=== PATIENT | male | born 1955 | race Caucasian/White ===

== ENCOUNTER → 2018-05-30 16:27 | Outpatient (CLI) | payer BC ==
[~2018-05-30 16:27] MED LIST: ASPIRIN81 MG PO; AXIRON30 MG/1.5 IM; BYSTOLIC2.5 MG PO; CYMBALTA60 MG PO; FARXIGA10 MG PO; GLIMEPIRIDE4 MG PO; HCTZ25 MG PO; JANUMET XR 50-1 EAC1 PO; NORVASC10 MG PO; PLAVIX75 MG PO; SYNTHROID25 MCG PO; VASOTEC10 MG PO; VICTOZA0.6 MG/0.1 SQ; XANAX2 MG PO; ZOCOR20 MG PO
[2018-07-15 05:53] VITALS: BMI 32.6
== END | disposition home or self-care (01) ==
LOC: D.MRI 16:27
DX: M25.512 Pain in left shoulder (principal)

== ENCOUNTER → 2018-06-07 17:01 | Outpatient (CLI) | payer BC ==
[2018-06-07 18:09] LABS: CHOL - HDL RATIO 7.3 ratio (2.3-4.9); LDL-HDL RATIO 4.1 ratio (1.5-3.5)
[2018-07-15 05:53] VITALS: BMI 32.6
== END | disposition home or self-care (01) ==
LOC: D.LABREF 17:01
PROVIDERS: Internal Medicine Cardiovascular Disease
DX: E78.5 Hyperlipidemia, unspecified (principal)

== ENCOUNTER → 2018-06-13 12:46 | Outpatient (CLI) | payer BC ==
--- NOTE | ~2018-06-13 | EC ---
PATIENT:ALIX MANCILLA DATE OF SERVICE: 06/13/18 SEX: M MEDICAL RECORD: [id number] DATE OF : 59 LOCATION:[facility] AGE OF PATIENT: 62 ADMISSION DATE: 06/13/18 REFERRING PHYSICIAN: INTERPRETING PHYSICIAN: TREASURE TIMMONS MD ECHOCARDIOGRAM REPORT ECHO CHARGES 4 ECHO COMPLETE Date: 06/13 CLINICAL DIAGNOSIS: HTN ECHOCARDIOGRAPHIC MEASUREMENTS (adult normal given) AC root (d.<3.7cm) 3.4 cm LV Septum d (<1.2 cm> 1.4 cm Valve Excursion 1.2 cm LV Septum (systole) 1.4 cm Left Atria (s.<4.0cm> 3.7 cm LVPW d(<1.2cm) 0.8 cm RV (d.<2.3cm) 3.1 cm LVPW (sytole) 0.9 cm LV diastole(<5.6CM) 4.9 cm MV E-F(>70mm/sec) cm LV systole 3.9 cm LVOT Diameter 1.9 cm MV exc.(>10mm) cm Est.ejection fraction (50-75%) % DOPPLER: LVIT cm/sec A 73 cm/sec E 45 cm/sec LA cm/sec RVSP 15.6 mmHg LVOT 113 cm/sec AOP1/2T m/s Asc. Ao 135 cm/sec RVOT 87 cm/sec RA cm/sec PA 101 cm/sec AV Gradient Peak 7.3 mmHg AV Mean 4.6 mmHg AV Area 2.2 cm MV Gradient Peak 4.0 mmHg MV Mean 1.7 mmHg MV Area cm COMMENTS: President Celebrity Acquistion: Irena ZARAGOZA Fur Floor Worker: Machelle Timmons TAPE# PACS Pericardial Effusion N DATE OF SERVICE: PROCEDURE: Transthoracic echocardiogram. FINDINGS: This is a technically difficult study. It is difficult to visualize endocardial structures, but overall: 1. The left ventricle shows ejection fraction of 60%. There is evidence of left ventricular hypertrophy. Inflow characteristics consistent with diastolic dysfunction. 2. The left atrium appears to be overall normal. ECHOCARDIOGRAM REPORT [id number] ALIX MANCILLA 3. The aortic valve again appears to be overall normal. 4. The mitral valve not well visualized, but appears to have normal structure and function. 5. The tricuspid valve has trace tricuspid regurgitation. RVSP appears to be normal. 6. The right ventricle is upper limits of normal with normal function. 7. The right atrium is mildly dilated. 8. The pulmonic valve is not well visualized. The pericardium is normal. CONCLUSIONS: The patient has evidence of hypertensive heart disease, otherwise normal echocardiogram for the patient's stated age. TRANSINT:[id number] Voice Confirmation ID: [id number] DOCUMENT ID: [id number] TREASURE TIMMONS MD at 1458 CC: [id number] DICTATION DATE: 06/14/18 0844 BRICK WHEELER: 06/14/18 0908 DEP CLI 06/13/18 [id number] [place] [address]
[2018-07-15 05:53] VITALS: BMI 32.6
== END | disposition home or self-care (01) ==
LOC: D.ECHO 12:46
DX: I10 Essential (primary) hypertension (principal); R94.31 Abnormal electrocardiogram [ECG] [EKG]; E11.9 Type 2 diabetes mellitus without complications; I25.810 Atherosclerosis of coronary artery bypass graft(s) without angina pectoris

== ENCOUNTER → 2018-06-20 07:10 | Outpatient (CLI) | payer BC ==
[~2018-06-20] VITALS: Ht 182.9 cm; Wt 104.5 kg
--- NOTE | ~2018-06-20 | HEMODYNAMI ---
PATIENT:ALIX MANCILLA MEDICAL RECORD: [id number] : 59 LOCATION:[facility] ADMISSION DATE: 06/20/18 Generatedon:06/20/20189:23 Patient name: ALIX MANCILLA Patient #: [id number] SSN: : Date of study: 06/20/2018 Page: Of Hemodynamic Procedure Report Patient Data Patient Demographics Procedure consent was obtained First Name: ALIX Gender: Male Last Name: LAURENT : 1955 Patient #: [id number] Age: 62 year(s) Race: Unknown Additional ID: [id number] Contact details Address: [address] [place] [address] RO[address] State: [place] City: [place] Zip code: [address] Past Medical History Allergies: No known allergies Admission Admission Data Admission Date: 06/20/2018 Admission Time: 7:10 Lab Results Lab Result Date: 06/20/2018 Lab Result Time: 8:05 Biochemistry Name Units Result Min Max BUN mg/dl 45 --(----)-* 7 18 Creatinine mg/dl 1.8 --(----)-* 0.6 1.3 CBC Name Units Result Min Max Hematocrit % 44.5 --(*---)-- 42 54 Hemoglobin g/dl 15.3 --(-*--)-- 13.5 17.5 Procedure Procedure Types Cath Procedure Diagnostic Procedure LHC LHC w/Coronaries w/Grafts Sedation Charges Moderate Sedation up to 15 minutes Procedure Description Procedure Date Procedure Date: 06/20/2018 Procedure Start Time: 9:02 Procedure End Time: 9:23 Procedure Staff Name Function Hany Jade MD Performing Physician Emmy Blum RT Monitor Cy Moncada RN Nurse Fatoumata oCe RT Scrub Tristin Waddell RN Director Of Regional Sales Procedure Data Cath Procedure Fluoroscopy Diagnostic fluoroscopy Total fluoroscopy Time: 4.1 time: 4.1 min min Diagnostic fluoroscopy Total fluoroscopy dose: 978 dose: 978 mGy mGy Contrast Material Contrast Material Type Amount (ml) Isovue 300 83 Entry Location Entry Primary Successful Side Size Upsize Upsize Entry Closure Succes sful Closure Location (Fr) 1 (Fr) 2 (Fr) Remarks Device Remarks Femoral Right 5 Fr Exoseal artery Estimated blood loss: 5 ml Diagnostic catheters Device Type Used For End Catheter Placement MULTIPACK 3DRC 5Fr Internal mammary catheter arteriography MULTIPACK 3DRC 5Fr SVG Angiography catheter MULTIPACK 3DRC 5Fr Right Coronary catheter Angiography MULTIPACK JL 4.0 5Fr Left Coronary catheter Angiography MULTIPACK Pigtail 5 Fr LV Angiography catheter MULTIPACK Pigtail 5 Fr Aortic Root catheter Angiography Procedure Complications No complications Procedure Medications Medication Administration Route Dosage 0.9% NaCl I.V. 100 ml/hr Oxygen etCO2 Nasal cannula 2 l/min Heparin Flush Bag added to field 2 bags (1000units/500ml NS) Lidocaine 2% added to field 20 Versed I.V. 2 mg Fentanyl I.V. 50 mcg Versed I.V. 1 mg Fentanyl I.V. 50 mcg Hemodynamics Rest HGB: 15.3 (g/dl) Heart Rate: 73 (bpm) Pressure Samples Time Site Value (mmHg) Purpose Heart Use Rate(bpm) 9:17 LV 132/-7,13 EDP 77 9:18 AO 126/70(94) Pullback 74 9:18 LV 126/10,12 Pullback 74 Gradients Valve Time Site 1 Site 2 Mean SEP/DFP Peak To Heart Use (mmHg) (sec/min) Peak Rate (mmHg) (bpm) Aortic 9:18 LV AO 1 9 0 74 126/10,12 126/70(94) Calculations Valve P-P Mean Valve Index Valve Source Name Gradient Area Flow (cm2) Aortic 0 1 0 1 Snapshots Pre Cath Intra NCS Post Cath Vital Signs Time Heart Resp SPO2 etCO2 NIBP (mmHg) Rhythm Pain Sedation Rate (ipm) (%) (mmHg) Status Level (bpm) 8:49:54 72 19 100 36 141/77(116) NSR 0 (11) 10(A) , No pain 8:54:36 69 16 97 37.6 130/75(105) NSR 0 (11) 10(A) , No pain 8:59:15 77 14 99 23.3 128/81(96) NSR 0 (11) 10(A) , No pain 9:03:57 73 10 100 18.8 137/80(105) NSR 0 (11) 10(A) , No pain 9:08:38 72 15 99 36 123/73(96) NSR 0 (11) 10(A) , No pain 9:13:21 70 18 99 41.3 122/75(98) NSR 0 (11) 10(A) , No pain 9:18:01 73 13 100 31.5 129/79(106) NSR 0 (11) 10(A) , No pain 9:22:46 70 7 98 33.8 133/71(109) NSR 0 (11) 10(A) , No pain Medications Time Medication Route Dose Verified Delivered Reason Notes Effe ctiveness by by 8:49:57 0.9% NaCl I.V. 100 Cy Cy Per ml/hr Lorigan Lorigan physician RN RN 8:50:10 Oxygen etCO2 2 Cy Cy Per Nasal l/min Lorgaro Kooigan physician cannula RN RN 8:50:22 Heparin Flush added 2 Cy Cy used for Bag to bags Lorigan Lorigan procedure (1000units/500ml field RN RN NS) 8:50:32 Lidocaine 2% added 20ml Cy Cy for local to vial Lorigan Lorigan anesthetic field RN RN 8:50:46 Versed I.V. 2 mg Cy Cy for Lorigan Lorigan sedation RN RN 8:50:55 Fentanyl I.V. 50 Cy Cy for mcg Lorigan Lorigan sedation RN RN 9:03:16 Versed I.V. 1 mg Cy Cy for Lorigan Lorigan sedation RN RN 9:03:28 Fentanyl I.V. 50 Cy Cy for mcg Lorigan Lorigan sedation RN mattress filling machine tender Log Time Note 8:31:58 Time tracking: Regular hours (M-F 7:00 - 5:00) 8:32:02 Plan of Care:Hemodynamics will remain stable., Cardiac rhythm will remain stable., Comfort level will be maintained., Respiratory function will remain adequate., Patient/ family verbilizes understanding of procedure., Procedure tolerated without complication., Recovers from procedure without complications.. 8:35:51 Tristin Waddell RN sent for patient. Start room use. 8:40:37 Patient received from Pre/Post Procedure Room to CCL 1 Alert and oriented. Tansferred to table in Supine position. 8:40:38 Warm blankets applied, and eliot hugger turned on for patient comfort. 8:40:39 Correct patient and procedure confirmed by team. 8:40:40 Signed procedure consent form obtained from patient. 8:40:41 ECG and BP/O2 sat monitors applied to patient. 8:40:42 Full Disclosure recording started 8:44:38 H&P Date Dictated: 06/16/2018 Within 30 days and on chart., H&P Addendum completed by physician on day of procedure. (MUST COMPLETE FOR ALL OUTPATIENTS). 8:44:39 Pre-procedure instructions explained to patient. 8:44:40 Pre-op teaching completed and patient verbalized understanding. 8:44:41 Family in waiting room. 8:44:42 Patient NPO since Midnight. 8:44:49 Patient allergic to No known allergies 8:44:51 Is the patient allergic to Iodine/contrast media? No. 8:44:52 Is patient on blood thinner?Yes 8:44:54 ACC The patient was administered the following blood thiners within the last 24 hours: ACCPlavix 8:44:58 Patient diabetic? Yes. 8:44:59 If diabetic: On Metformin? No 8:45:01 Previous problem with sedation/anesthesia? No ? 8:45:03 Snore? Yes 8:45:04 Sleep apnea? Yes 8:45:05 Deviated septum? No 8:45:05 Opens mouth fully? Yes 8:45:06 Sticks out tongue? Yes 8:45:08 Airway obstruction? No ? 8:45:09 Dentures? No ? 8:45:15 Pre procedure: right dorsailis pedis pulse 2+ Normal; easily identifiable; not easily obliterated 8:45:16 Patient pain scale 0/10 ?. 8:45:34 IV patent on arrival in right antecubital with 0.9% NaCl at O. 8:47:07 Lab results completed and on chart. 8:48:32 Lab Result : BUN 45 mg/dl 8:48:32 Lab Result : Creatinine 1.8 mg/dl 8:48:32 Lab Result : Hemoglobin 15.3 g/dl 8:48:32 Lab Result : Hematocrit 44.5 % 8:48:35 Right groin area was prepped with chlora-prep and draped in sterile fashion 8:48:36 Alarms reviewed by R. N. 8:48:36 Sharps counted by scrub and verified by R.N. 8:48:42 Use device set Femoral Dx 8:48:43 ACIST Syringe (72059) opened to sterile field. 8:48:43 Bag Decanter (2002S) opened to sterile field. 8:48:43 Medline Cath Pack ([id number]) opened to sterile field. 8:48:45 ACIST Hand Control (81538) opened to sterile field. 8:48:45 ACIST Manifold (22786) opened to sterile field. 8:48:46 Tegaderm 4 x 4 (1626W) opened to sterile field. 8:48:48 SHEATH Prelude 5Fr 0.035 ([id number]-4W-19-035) opened to sterile field. 8:48:49 MICROPUNCTURE 4FR Cook ([id number]) opened to sterile field. 8:48:50 DIAGNOSTIC WIRE .035 260cm J wire (421013) opened to sterile field. 8:48:52 DIAGNOSTIC Multipack 5Fr catheter set ([id number]) opened to sterile field. 8:48:57 Vital chart was started 8:49:07 Baseline sample Acquired. 8:49:11 Rhythm: sinus rhythm 8:49:17 Physician arrived 8:49:17 --------ALL STOP TIME OUT------ 8:49:18 Final Timeout: patient, procedure, and site verified with staff and physician. All members of the team are in agreement. 8:49:19 Right groin site verified by team. 8:49:23 Physical assessment completed. ASA score P 2 - A patient with mild systemic disease as per Hany Jade MD. 8:49:27 Sedation plan: IV Moderate Sedation Medication:Versed, Fentanyl 8:49:57 0.9% NaCl 100 ml/hr I.V. was administered by Cy Moncada RN; Per physician; 8:50:10 Oxygen 2 l/min etCO2 Nasal cannula was administered by Cy Moncada RN; Per physician; 8:50:22 Heparin Flush Bag (1000units/500ml NS) 2 bags added to field was administered by Cy Moncada RN; used for procedure; 8:50:32 Lidocaine 2% 20ml vial added to field was administered by Cy Moncada RN; for local anesthetic; 8:50:46 Versed 2 mg I.V. was administered by Cy Moncada RN; for sedation; 8:50:55 Fentanyl 50 mcg I.V. was administered by Cy Moncada RN; for sedation; 8:56:23 Zero performed for pressure channel P1 9:01:51 Procedure started. 9:02:07 Local anesthetic to right femoral artery with Lidocaine 2% by Hany Jade MD.INITIAL ACCESS ONLY 9:03:16 Versed 1 mg I.V. was administered by Cy Moncada RN; for sedation; 9:03:28 Fentanyl 50 mcg I.V. was administered by Cy Moncada RN; for sedation; 9:04:02 Access obtained with 4Fr micropunture. 9:04:53 A 5 Fr sheath was inserted into the Right Femoral artery 9:06:43 A MULTIPACK 3DRC 5Fr catheter was advanced over the wire and used for Internal mammary arteriography. TO LAD 9:11:28 A MULTIPACK 3DRC 5Fr catheter was advanced over the wire and used for SVG Angiography. X2 OCCLUDED 9:11:36 A MULTIPACK 3DRC 5Fr catheter was advanced over the wire and used for Right Coronary Angiography. 9:11:37 Catheter removed. 9:12:33 A MULTIPACK JL 4.0 5Fr catheter was advanced over the wire and used for Left Coronary Angiography. 9:15:32 Catheter removed. 9:16:09 A MULTIPACK Pigtail 5 Fr catheter was advanced over the wire and used for LV Angiography. 9:17:29 LV gram done using ROSARIO 9:17:30 LV hemodynamics recorded. 9:17:33 Injector settings: Ml/sec: 12, Volume: 8, 9:18:23 A MULTIPACK Pigtail 5 Fr catheter was advanced over the wire and used for Aortic Root Angiography. 9:18:30 Injector settings: Ml/sec: 15, Volume: 20, 9:19:16 Catheter removed. 9:19:55 Sheath removed intact; hemostasis achieved with Exoseal to the Right Femoral artery. 9:19:57 Procedure ended.(Physican Out) 9:20:18 Fluoroscopy time 04.10 minutes. 9:20:22 Flurop Dose total: 978 9:20:22 Fluoroscopy dose: 978 mGy 9:20:27 Contrast amount:Isovue 300 83ml. 9:20:28 Sharps counted by scrub and verified by R.N. 9:20:30 Insertion/operative site no bleeding no hematoma. 9:20:33 Post-op/insertion site Right Femoral artery dressed using a 4 x 4 and Tegaderm. 9:20:36 Post right femoral artery:stable, clean and dry 9:20:38 Post Procedure Pulses reassessed and unchanged 9:20:42 Post-procedure physical assessment completed. ASA score P 2 - A patient with mild systemic disease as per Hany Jade MD. 9:20:44 Post procedure rhythm: unchanged. 9:20:47 Estimated blood loss: 5 ml 9:20:48 Post procedure instruction explained to patient.Patient verbalizes understanding. 9:20:51 Patient needs reinforcement of post procedure teaching. 9:22:15 Procedure type changed to Cath procedure, Diagnostic procedure, LHC, LHC w/Coronaries w/Grafts, Sedation Charges, Moderate Sedation up to 15 minutes 9:22:19 Procedure Complication : No complications 9:22:21 See physician's report for complete and final results. 9:22:36 EXOSEAL 5Fr (EX500) opened to sterile field. 9:22:58 Procedure and supply charges have been captured, reviewed, submitted and are correct. 9:23:11 Vital chart was stopped 9:23:13 Report given to Pre/Post Procedure Room. 9:23:15 Patient transfered to Pre/Post Procedure Room with Stretcher. 9:23:26 Procedure ended. 9:23:26 Full Disclosure recording stopped 9:23:30 End room use (Document Last) Device Usage Item Name Manufacture Quantity Catalog Number Hospital Part Current M inimal Lot# / Charge Number Stock Stock Serial# Code ACIST Syringe Acist 1 [id number] 734920 [id number] 2 0 (23895) [employer] Bag Decanter Microtek 1 713423 09609 231116 5 () Medical Inc. Medline Cath Cardinal 1 [id number] 575255 01893 027059 5 Pack Health ([id number]) ACIST Hand Acist 1 70478 535845 984541 689245 5 Control (02980) [employer] Inc ACIST Manifold Acist 1 99971 191960 784581 742288 5 (75177) [employer] Inc Tegaderm 4 x 4 3M 1 1626W 395880 885644 133317 5 (1626W) SHEATH Prelude Merit 1 TVX-1U-08-035 287527 393651 990641 5 5Fr 0.035 Medical ([id number]-8O-07-035) MICROPUNCTURE Cook Medical 1 [id number] 332355 535361 120969 5 4FR Cook (H00153) DIAGNOSTIC WIRE St Uriel 1 513281 005908 139296 254832 3 0 .035 260cm J wire (882825) DIAGNOSTIC Cardinal 1 [id number] 464355 07454 289019 3 0 Multipack 5Fr Health catheter set ([id number]) MULTIPACK 3DRC Cardinal 1 704543 5 5Fr catheter Health MULTIPACK JL Cardinal 1 272174 5 4.0 5Fr Health catheter MULTIPACK Cardinal 1 781333 5 Pigtail 5 Fr Health catheter EXOSEAL 5Fr Cardinal 1 EX500 661596 020897 817676 1 0 (EX500) Health Signature Audit [place] Stage Time Signature Unsigned Intra-Procedure 06/20/2018 Emmy 9:23:43 AM Counts RT(R) Signatures Monitor : Emmy Signature : Counts RT Date : Time : [id number] [place] [address]
--- NOTE | ~2018-06-20 | OP ---
PATIENT NAME: ALIX MANCILLA MEDICAL RECORD: [id number] :59 LOCATION:[facility] ADMISSION DATE: SURGEON: TREASURE TIMMONS MD DATE OF OPERATION: 06/20/2018 PROCEDURES: Left heart cath, LV gram, coronary angiogram, saphenous vein bypass angiogram, MAHMOOD angiogram, left ventriculogram, and coronary angiogram. INDICATION: Chest pain, abnormal stress test, left shoulder pain. PROCEDURE IN DETAIL: The patient was brought to cardiac catheterization lab in stable condition. Both groins were sterilely prepped and draped. The patient had a 5-Azerbaijani sheath placed in right common femoral artery in a retrograde fashion using a modified Seldinger technique. The patient then had a selective angiography of the MAHMOOD and the SVG to the RCA and the SVG to the OM. The patient then had a left ventriculogram and selective intubation of the left coronary artery and the right coronary artery. FINDINGS: The MAHMOOD was initially injected first and we demonstrated the MAHMOOD was implanted into an LAD with a very small distribution into the apex and had extensive collateralization into the PDA. The MAHMOOD was widely patent and there was no post-anastomotic disease. The SVG to, I think, an OM is occluded. The SVG to the RCA is occluded. The RCA is 100% occluded in the mid segment. The left main is shown to have 40% stenosis. The LAD is 100% occluded in the mid segment post the mid diagonal in the mid septal. The circ is shown to be mildly diseased in the proximal segment at 50%. The ostial obtuse marginal branch is also shown to have a 50% stenosis. There is extensive collateralization from the left side to the right. HEMODYNAMICS: 1. Left ventricular ejection fraction is 65%. End-diastolic pressure is normal. 2. The aortic root shows normal root size and there was no demonstration of vein grafts on root angiography. IMPRESSION: Severe single-vessel coronary artery disease with 1 of 3 bypass grafts patent and extensive collateralization to the right coronary artery and preserved left ventricular systolic function. RECOMMENDATIONS: The patient is cleared for upcoming surgery. Continue aggressive secondary risk factor modification, antiplatelet therapy could be resumed after his surgery and follow up as clinically indicated. TRANSINT:[id number] Voice Confirmation ID: [id number] DOCUMENT ID: [id number] OPERATIVE REPORT [id number] ALIX MANCILLA TREASURE TIMMONS MD at 0749 CC: [id number] DICTATION DATE: 06/20/18 0926 FAMILY RESOURCE MANAGEMENT PROFESSOR: 06/20/18 1250 DEP CLI 06/20/18 [address] [place] [address]
[2018-06-20 07:41] VITALS: BP 140/79; Ht 182.9 cm; Wt 104.5 kg
[2018-06-20 08:26] LABS: BASOPHILS 0.4 % (0-2); EOSINOPHILS 1.4 % (0-7); HEMATOCRIT 44.5 % (42.0-54.0); HEMOGLOBIN 15.3 g/dL (13.5-17.5); IMMATURE GRANULOCYTES 0.5 % (0-5); LYMPHOCYTES 20.4 % (15-50); MCH 32.3 pg (26.0-34.0); MCHC 34.4 g/dL (31.0-37.0); MCV 94.1 fL (80.0-100.0); MEAN PLATELET VOLUME 9.7 fL (7.4-10.4); MONOCYTES 8.1 % (2-11); NEUTROPHILS 69.2 % (40-80); PLATELET COUNT 207 10x3/uL (130-400); RBC 4.73 10x6/uL (4.20-6.10); RDW 13.2 % (11.5-14.5); WBC 11.3 10x3/uL (4.8-10.8)
[2018-06-20 08:41] LABS: ANION GAP 12.8 mmol/L (8-16); CALCIUM 9.5 mg/dL (8.5-10.1); CARBON DIOXIDE 23.9 mmol/L (21.0-32.0); CREATININE - SERUM 1.8 mg/dL (0.6-1.3); POTASSIUM - SERUM 4.7 mmol/L (3.5-5.1)
== END | disposition home or self-care (01) ==
LOC: D.CATH 07:10
PROVIDERS: Internal Medicine Cardiovascular Disease
DX: I25.119 Atherosclerotic heart disease of native coronary artery with unspecified angina pectoris (principal); I25.719 Atherosclerosis of autologous vein coronary artery bypass graft(s) with unspecified angina pectoris; Z01.812 Encounter for preprocedural laboratory examination; Z01.810 Encounter for preprocedural cardiovascular examination

== ENCOUNTER 2018-07-15 05:25 | Outpatient (CLI) | payer BC ==
[2018-07-14 14:24] LABS: HEMATOCRIT 47.2 % (42.0-54.0); HEMOGLOBIN 16.6 g/dL (13.5-17.5); MCH 33.5 pg (26.0-34.0); MCHC 35.2 g/dL (31.0-37.0); MCV 95.4 fL (80.0-100.0); MEAN PLATELET VOLUME 9.9 fL (7.4-10.4); RBC 4.95 10x6/uL (4.20-6.10); RDW 14.2 % (11.5-14.5); WBC 10.4 10x3/uL (4.8-10.8)
[2018-07-14 14:35] LABS: ANION GAP 16.1 mmol/L (8-16); CALCIUM 9.6 mg/dL (8.5-10.1); CARBON DIOXIDE 27.4 mmol/L (21.0-32.0); CREATININE - SERUM 1.9 mg/dL (0.6-1.3); POTASSIUM - SERUM 4.5 mmol/L (3.5-5.1)
[~2018-07-15] VITALS: Ht 182.9 cm; Wt 108.9 kg
[2018-07-15 05:53] VITALS: BP 138/79; Ht 182.9 cm; Wt 108.9 kg
== END 2018-07-15 05:26 | disposition home or self-care (01) ==
LOC: D.OPS 05:25 → EDSTATUS 07:30 → D.OPS 07:30 → D.PAN 07:30
PROVIDERS: Anesthesiology
DX: M75.102 Unspecified rotator cuff tear or rupture of left shoulder, not specified as traumatic (principal); Z53.9 Procedure and treatment not carried out, unspecified reason; Z01.812 Encounter for preprocedural laboratory examination

== ENCOUNTER 2018-07-22 08:31 | Day surgery (SDC) | payer BC ==
[~2018-07-22] VITALS: Ht 182.9 cm; Wt 108.9 kg
--- NOTE | ~2018-07-22 | OP ---
PATIENT NAME: ALIX LOPEZ MEDICAL RECORD: [id number] :59 [facility] DATE: SURGEON: JAMES CASAS DO DATE OF OPERATION: 07/22/2018 PROCEDURE PERFORMED: Left shoulder arthroscopy with rotator cuff repair, biceps tenodesis, distal clavicle excision, and subacromial decompression. PREOPERATIVE DIAGNOSES: Left shoulder partial rotator cuff tear, labral tear, subacromial impingement, and acromioclavicular joint arthritis. PREOPERATIVE DIAGNOSES: Left shoulder partial rotator cuff tear full thickness, labral tear, subacromial impingement, and acromioclavicular joint arthritis. INDICATIONS: Mr. Lopez is a 62-year-old male who presented to my office having quite a history of left shoulder pain. He had the right shoulder rotator cuff done. He said it felt very similar and MRI was done, which showed the partial cuff tear. It was not full thickness, but he had symptoms of full thickness tear and then labral tear based off exam and subacromial impingement as well as AC joint arthritis. He was signed up for surgery, aware of the risks and benefits including infection, bleeding, damage to nerves and vessels, need for further surgery, retear of the rotator cuff tendon. He was okay with those risks and wanted to proceed forward with the procedure and consented to it. SURGEON: James Casas DO DESCRIPTION OF PROCEDURE: The patient was given a block in the preoperative area by anesthesia, given 900 mg of clindamycin preoperatively, laid in the right lateral decubitus position. The left shoulder was prepped and draped in sterile fashion. A timeout was performed and everyone was agreement as to correct side, site, patient, and procedure. The procedure then began by insufflating the shoulder joint itself with 60 mL of normal saline with an 18-gauge spinal needle and the posterior portal was established with 11-blade scalpel and the trocar was entered into the joint. The SLAP tear was seen right away. The anterior portal was then established with an 18-gauge spinal needle and then an 11-blade scalpel. Trocar was then entered into the front of the shoulder through the anterior portal. The biceps tendon was probed and seen to have a SLAP tear and was noted. The subscapularis tendon was viewed and no tears were seen there. The inferior pouch was deep and no loose bodies were seen there. The rotator cuff itself, supraspinatus was seen and there seemed to be a tear on the anterior fibers as well as more posterior. He had greater than 60% of the fibers torn on the articular side. After this was done, the burner was entered into the shoulder and a burner was used to do the bicep tenotomy. The shoulder scope was then put into the subacromial space. A decompression was then performed in the shoulder and the distal lateral acromion spur was removed as well as the distal clavicle was excised to open up the AC joint to 7 mm. Following this, the bursa was removed from off the rotator cuff and the tear was viewed from the bursal side. There were just a few fibers remaining on the bursal side, essentially making a full thickness tear. The shoulder was then opened over the lateral portal that had been established prior to this in order to do a decompression and careful dissection was made down to the rotator cuff tear. It was debrided and then a shaver was used to decorticate the humerus underneath the tear. Two anchors were used medially, put through the tendon where a FiberTape and 2 sutures anterior to posterior to these. Free sutures were tied down to provide compression over the anchors themselves and then 2 OPERATIVE REPORT [id number] GRAVES,ALIX lateral anchors were used to bring over the FiberTapes crossing one of each limb over anterior to posterior and posterior to anterior forming a nice repair. These were locked down laterally. The excess suture were then removed and cut and then attention was drawn to the biceps tenodesis portion of the procedure, which an incision was made on the anterior humerus just distal to the pec insertion on the humerus. Sterile dissection was made down to the biceps tendon. This was removed through the incision and whipstitched and then put into the humerus through a single unicortical hole was drilled and the button was cinched down and tightened down and then tied and a free needle was used to suture through the tendon tying a knot on top of this securing the tenodesis in that area. The wounds were then very thoroughly irrigated and the deltoid fascia was closed with 2-0 Vicryl in a [id number] fashion. The skin was closed with 2-0 Vicryl in inverted interrupted fashion over that and the biceps tenodesis site and then 4-0 Monocryl was ran on the skin at each site and the 4-0 Monocryl was ran using an inverted interrupted fashion on each of the anterior and posterior portals and then Dermabond, Telfa and Tegaderm were placed over the incision sites. The patient was then awakened and taken to recovery in stable condition. BLOOD LOSS: Minimal. COMPLICATIONS: None. TRANSINT:[id number] Voice Confirmation ID: [id number] DOCUMENT ID: [id number] JAMES CASAS DO at 1454 CC: [id number] DICTATION DATE: 07/22/18 1253 ELASTIC YARN TWISTER: 07/22/18 1310 [facility] [address] [place] [address]
[2018-07-22 09:39] VITALS: BP 147/82; Ht 182.9 cm; Wt 108.9 kg
[2018-07-22] MEDS ORDERED: DURICEF500 MG PO (12:45)
[2018-07-22] MEDS ORDERED: VISTARIL50 MG PO (12:46)
[2018-07-22] MEDS ORDERED: PERCOCET 7.5/321 TAB PO (12:46)
== END 2018-07-22 14:20 | disposition home or self-care (01) ==
LOC: D.OPS 08:31 → D.PAN 10:00 → D.OPS 14:20
DX: M75.112 Incomplete rotator cuff tear or rupture of left shoulder, not specified as traumatic (principal); S43.432A Superior glenoid labrum lesion of left shoulder, initial encounter; M75.42 Impingement syndrome of left shoulder; M13.812 Other specified arthritis, left shoulder; Z01.812 Encounter for preprocedural laboratory examination; X58.XXXA Exposure to other specified factors, initial encounter

== ENCOUNTER → 2018-08-12 10:42 | Outpatient (CLI) | payer BC ==
[2018-07-22 09:39] VITALS: BMI 32.6
[~2018-08-12 10:42] MED LIST changes: +DURICEF500 MG PO; +PERCOCET 7.5/321 TAB PO; +VISTARIL50 MG PO
[2018-08-12 11:43] LABS: BASOPHILS 0.6 % (0-2); EOSINOPHILS 1.6 % (0-7); HEMATOCRIT 46.1 % (42.0-54.0); HEMOGLOBIN 15.9 g/dL (13.5-17.5); LYMPHOCYTES 18.3 % (15-50); MCH 32.7 pg (26.0-34.0); MCHC 34.5 g/dL (31.0-37.0); MCV 94.9 fL (80.0-100.0); MEAN PLATELET VOLUME 10.1 fL (7.4-10.4); MONOCYTES 6.4 % (2-11); NEUTROPHILS 72.1 % (40-80); PLATELET COUNT 259 10x3/uL (130-400); RBC 4.86 10x6/uL (4.20-6.10); RDW 14.1 % (11.5-14.5); WBC 10.4 10x3/uL (4.8-10.8)
[2018-08-12 11:52] LABS: CREATININE - URINE 85.5 mg/dL (30-125)
[2018-08-12 11:55] LABS: APPEARANCE CLEAR (CLEAR); COLOR YELLOW (YELLOW); NITRITE NEGATIVE (NEGATIVE); PRO/CRE RATIO URINE 3.5 mg/g; PROTEIN 3+ mg/dL (NEGATIVE)
[2018-08-12 11:56] LABS: BACTERIA NONE SEEN /hpf (NONE SEEN); BILIRUBIN NEGATIVE (NEGATIVE); EPITHELIAL CELLS NSEEN /hpf (0-5); GLUCOSE 1000 mg/dL (NEGATIVE); KETONE NEGATIVE (NEGATIVE); RED CELLS - URINE RARE /hpf (0-5); UROBILINOGEN NORMAL (NORMAL); WHITE CELLS - URINE NSEEN /hpf (0-5)
[2018-08-12 12:13] LABS: % SATURATION 34 % (15-55); IRON 108 ug/dl (35-150); TOTAL IRON BIND CAPACITY 311 ug/dl (260-445); UNSAT IRON BIND CAPACITY 203 ug/dl (150-375)
[2018-08-12 12:15] LABS: ALBUMIN 3.4 g/dL (3.4-5.0); ANION GAP 12.2 mmol/L (8-16); CALCIUM 8.9 mg/dL (8.5-10.1); CARBON DIOXIDE 26.2 mmol/L (21.0-32.0); CREATININE - SERUM 1.6 mg/dL (0.6-1.3); MAGNESIUM - SERUM 2.1 mg/dL (1.8-2.4); PHOSPHOROUS 3.2 mg/dL (2.5-4.9); POTASSIUM - SERUM 4.4 mmol/L (3.5-5.1)
[2018-08-13 06:15] LABS: VITAMIN D 25 HYDROXY 28.5 ng/mL (30.0-100.0)
[2018-08-13 11:10] LABS: FOLATE (FOLIC ACID) - SERUM 7.8 ng/mL (>3.0)
[2018-08-15 17:12] LABS: IMMUNOFIXATION Note: (()); IMMUNOGLOBULIN A 287 mg/dL (90-386); IMMUNOGLOBULIN G 855 mg/dL (700-1600); IMMUNOGLOBULIN M 157 mg/dL (20-172)
[2018-08-16 17:12] LABS: SPE - A/G RATIO 1.1 (0.7-1.7); SPE - ALBUMIN 3.7 g/dL (2.9-4.4); SPE - ALPHA-1 GLOBULIN 0.1 g/dL (0.0-0.4); SPE - ALPHA-2 GLOBULIN 1.5 g/dL (0.4-1.0); SPE - GAMMA GLOBULIN 0.9 g/dL (0.4-1.8); SPE - M-SPIKE Not Observed g/dL (Not Observed); SPE - TOTAL PROTEIN 7.2 g/dL (6.0-8.5)
== END | disposition home or self-care (01) ==
LOC: D.US 10:42
PROVIDERS: Internal Medicine Nephrology
DX: I12.9 Hypertensive chronic kidney disease with stage 1 through stage 4 chronic kidney disease, or unspecified chronic kidney disease (principal); N18.4 Chronic kidney disease, stage 4 (severe); N25.81 Secondary hyperparathyroidism of renal origin; D64.9 Anemia, unspecified

== ENCOUNTER → 2018-11-14 08:54 | Outpatient (CLI) | payer BC ==
[2018-07-22 09:39] VITALS: BMI 32.6
[2018-11-14 09:33] LABS: CREATININE - URINE 99.5 mg/dL (30-125)
[2018-11-14 09:38] LABS: PRO/CRE RATIO URINE 3.3 mg/g; PROTEIN - URINE 331.4 mg/dL (0.0-11.9)
[2018-11-14 09:49] LABS: % SATURATION 34 % (15-55); IRON 109 ug/dl (35-150); TOTAL IRON BIND CAPACITY 317 ug/dl (260-445); UNSAT IRON BIND CAPACITY 208 ug/dl (150-375)
[2018-11-14 10:02] LABS: ANION GAP 13.2 mmol/L (8-16); CALCIUM 9.2 mg/dL (8.5-10.1); CARBON DIOXIDE 28.4 mmol/L (21.0-32.0); CREATININE - SERUM 1.5 mg/dL (0.6-1.3); POTASSIUM - SERUM 4.6 mmol/L (3.5-5.1)
[2018-11-14 10:22] LABS: BASOPHILS 0.5 % (0-2); HEMATOCRIT 53.7 % (42.0-54.0); HEMOGLOBIN 17.8 g/dL (13.5-17.5); IMMATURE GRANULOCYTES 0.6 % (0-5); MCHC 33.1 g/dL (31.0-37.0); MCV 96.6 fL (80.0-100.0); MEAN PLATELET VOLUME 10.5 fL (7.4-10.4); MONOCYTES 7.2 % (2-11); NEUTROPHILS 73.7 % (40-80); PLATELET COUNT 263 10x3/uL (130-400); RBC 5.56 10x6/uL (4.20-6.10); RDW 14.8 % (11.5-14.5)
[2018-11-14 10:28] LABS: APPEARANCE CLEAR (CLEAR); BILIRUBIN NEGATIVE (NEGATIVE); COLOR YELLOW (YELLOW); GLUCOSE 1000 mg/dL (NEGATIVE); KETONE NEGATIVE (NEGATIVE); NITRITE NEGATIVE (NEGATIVE); PROTEIN 3+ mg/dL (NEGATIVE); SPECIFIC GRAVITY 1.015 (1.005-1.020); UROBILINOGEN NORMAL (NORMAL)
[2018-11-14 10:29] LABS: BACTERIA FEW /hpf (NONE SEEN); EPITHELIAL CELLS OCC /hpf (0-5); MUCUS <1+ /lpf (NONE SEEN)
== END | disposition home or self-care (01) ==
LOC: D.LAB 08:54 → EDSTATUS 14:46
PROVIDERS: Internal Medicine Nephrology
DX: D64.9 Anemia, unspecified (principal); Z68.30 Body mass index [BMI] 30.0-30.9, adult; I12.9 Hypertensive chronic kidney disease with stage 1 through stage 4 chronic kidney disease, or unspecified chronic kidney disease; N18.4 Chronic kidney disease, stage 4 (severe); N25.81 Secondary hyperparathyroidism of renal origin

== ENCOUNTER → 2019-05-04 10:19 | Outpatient (CLI) | payer BC ==
[2018-07-22 09:39] VITALS: BMI 32.6
[2019-05-04 11:20] LABS: BASOPHILS 0.4 % (0-2); EOSINOPHILS 1.8 % (0-7); HEMATOCRIT 45.6 % (42.0-54.0); HEMOGLOBIN 15.8 g/dL (13.5-17.5); IMMATURE GRANULOCYTES 0.5 % (0-5); LYMPHOCYTES 16.5 % (15-50); MCH 33.1 pg (26.0-34.0); MCHC 34.6 g/dL (31.0-37.0); MCV 95.4 fL (80.0-100.0); MEAN PLATELET VOLUME 9.9 fL (7.4-10.4); MONOCYTES 9.8 % (2-11); PLATELET COUNT 258 10x3/uL (130-400); RBC 4.78 10x6/uL (4.20-6.10); RDW 14.8 % (11.5-14.5); WBC 11.2 10x3/uL (4.8-10.8)
[2019-05-04 11:27] LABS: PROTEIN - URINE 230.3 mg/dL (0.0-11.9)
[2019-05-04 11:29] LABS: CREATININE - URINE 257.6 mg/dL (30-125); PRO/CRE RATIO URINE 0.9 mg/g
[2019-05-04 11:51] LABS: APPEARANCE CLEAR (CLEAR); BACTERIA FEW /hpf (NONE SEEN); BILIRUBIN NEGATIVE (NEGATIVE); COLOR DK YELLOW (YELLOW); EPITHELIAL CELLS OCC /hpf (0-5); GLUCOSE NEGATIVE (NEGATIVE); GRANULAR CAST RARE /lpf (NONE SEEN); HYALINE CAST 0-5 /lpf (NONE SEEN); KETONE NEGATIVE (NEGATIVE); NITRITE NEGATIVE (NEGATIVE); PROTEIN 2+ mg/dL (NEGATIVE); RED CELLS - URINE 0-5 /hpf (0-5); SPECIFIC GRAVITY 1.025 (1.005-1.020); WHITE CELLS - URINE 0-5 /hpf (0-5)
[2019-05-04 11:52] LABS: MUCUS <1+ /lpf (NONE SEEN)
[2019-05-04 11:56] LABS: ANION GAP 13.1 mmol/L (8-16); CALCIUM 10.2 mg/dL (8.5-10.1); CARBON DIOXIDE 30.1 mmol/L (21.0-32.0); CREATININE - SERUM 1.8 mg/dL (0.6-1.3); POTASSIUM - SERUM 5.2 mmol/L (3.5-5.1)
== END | disposition home or self-care (01) ==
LOC: D.LAB 10:19
PROVIDERS: ATTEND Internal Medicine Nephrology
DX: D64.9 Anemia, unspecified (principal); N25.81 Secondary hyperparathyroidism of renal origin; I12.9 Hypertensive chronic kidney disease with stage 1 through stage 4 chronic kidney disease, or unspecified chronic kidney disease; N18.4 Chronic kidney disease, stage 4 (severe)

== ENCOUNTER → 2020-03-20 12:17 | Outpatient (CLI) | payer BC ==
[2018-07-22 09:39] VITALS: BMI 32.6
[~2020-03-20 12:17] MED LIST changes: +COREG25 MG; +GLUCOPHAGE1000 MG PO; +HYDROCODON-ACE1 EA10 PO; +LIPITOR40 MG PO; +LYRICA75 MG PO; +TOUJEO SOL300 UNIT/1; +ZESTRIL10 MG PO
== END | disposition home or self-care (01) ==
LOC: D.LABREF 12:17
PROVIDERS: ATTEND Internal Medicine Pulmonary Disease
DX: Z11.59 Encounter for screening for other viral diseases (principal)

== ENCOUNTER 2020-03-21 09:30 | Day surgery (SDC) | payer BC ==
[~2020-03-21] VITALS: Ht 182.9 cm; Wt 109.3 kg
--- NOTE | ~2020-03-21 | OP ---
PATIENT NAME: AIDEN MANCILLA MEDICAL RECORD: [id number] :59 LOCATION:[facility] ADMISSION DATE: SURGEON: GALINDO QUEEN MD DATE OF OPERATION: 03/21/2020 PREOPERATIVE DIAGNOSES: Lumbar spinal stenosis at L4-L5 and L5-S1 on the left. POSTOPERATIVE DIAGNOSES: Lumbar spinal stenosis at L4-L5 and L5-S1 on the left. PROCEDURE: Lumbar laminotomy, medial facetectomy and foraminotomy at L4-L5, left and L5-S1 left with METRx retractor. DESCRIPTION AND TECHNIQUE: After induction of general endotracheal anesthesia, the patient was rolled prone on the Bear frame. Lumbar spine was prepped and draped in usual sterile fashion. Fluoroscopic x-ray and spinal needle localized the L4-L5 and L5-S1 interspace on the left side. After infiltration of 1:100,000 epinephrine and 1% lidocaine, a stab incision was created with a #11 blade. Series of dilators were used to advance the METRx retractor at the L4-L5 interspace on the left side. Level was confirmed with fluoroscopic x-ray. A microscope and Midas Clarence drill were used to perform a laminotomy, medial facetectomy and foraminotomy at L4-L5 on the left as well as L5-S1 on the left. Hypertrophied ligamentum flavum was removed with Cloward rongeurs. This decompressed the left L4, L5 and S1 nerve roots. Meticulous hemostasis was maintained throughout the wound. Wound was irrigated with copious amounts of Ancef irrigant solution. The retractor was removed. The fascia was closed with 2-0 Vicryl suture. Subdermal layer was closed with 3-0 Vicryl suture, skin was closed with nadja. A sterile dressing was applied to the wound. The patient was awakened in good condition, taken to recovery. All counts were reported as correct. Estimated blood loss was minimal. TRANSINT:[id number] Voice Confirmation ID: [id number] DOCUMENT ID: [id number] GALINDO QUEEN MD CC: [id number] DICTATION DATE: 03/25/20803 BARREL RIFLER: 03/25/20 1404 [facility] 03/21/20 [place] [address]
[2020-03-21 07:25] LABS: BASOPHILS 0.6 % (0-2); EOSINOPHILS 2.2 % (0-7); HEMATOCRIT 50.1 % (42.0-54.0); IMMATURE GRANULOCYTES 0.3 % (0-5); LYMPHOCYTES 26.2 % (15-50); MCH 32.7 pg (26.0-34.0); MCHC 33.9 g/dL (31.0-37.0); MCV 96.3 fL (80.0-100.0); MEAN PLATELET VOLUME 9.6 fL (7.4-10.4); MONOCYTES 11.3 % (2-11); NEUTROPHILS 59.4 % (40-80); RDW 15.5 % (11.5-14.5); WBC 9.1 10x3/uL (4.8-10.8)
[2020-03-21 07:27] LABS: PLATELET COUNT 176 10x3/uL (130-400)
[2020-03-21 07:36] LABS: ANION GAP 12.1 mmol/L (8-16); CALCIUM 9.4 mg/dL (8.5-10.1); CARBON DIOXIDE 25.4 mmol/L (21.0-32.0); CREATININE - SERUM 2.1 mg/dL (0.6-1.3); POTASSIUM - SERUM 4.5 mmol/L (3.5-5.1)
[2020-03-21 08:13] VITALS: BP 108/65; Ht 182.9 cm; Wt 109.3 kg
[~2020-03-21 09:30] MED LIST changes: -HYDROCODON-ACE1 EA10 PO
[2020-03-21] MEDS ORDERED: HYDROCODON-ACE1 EA10 PO (10:59)
--- NOTE | 2020-03-21 11:35 | NUR ---
EQUAL STRENGHTS ALL 4 EXTREMETIES, SLIGHT NUMBNESSAND TINGLING REPORTED
--- NOTE | 2020-03-21 14:32 | NUR ---
1330-UNABLE TO VOID.VSS.NO DISTRESS.NO N/V.DRESSING CDI. PAIN 03/03.
--- NOTE | 2020-03-21 14:33 | NUR ---
1415-PT URINATED WITHOUT COMPLICATIONS. VSS.PAIN 02/01. NO DISTRESS.NO N/V. REMOVED IV WITH CATH INTACT,DISPOSED INTO SHARPS,COVERED WITH GUAZE,SECURED WITH MEDIPORE TAPE.
--- NOTE | 2020-03-21 14:35 | NUR ---
1422-REVIEWED POST OPERATIVE INSTRUCTIONS AND TO CALL TO CLARIFY FOLLOW UP. ATTEMPTED TO FOR PT WITHOUT AN ANSWER AT DR QUEEN'S OFFICE. VERBALIZED UNDERSTANDING. ESCORTED OUT VIA W/C WITH SPOUSE AWAITING TO DRIVE HOME.
== END 2020-03-21 14:22 | disposition home or self-care (01) ==
LOC: D.OPS 09:30
PROVIDERS: Anesthesiology; ATTEND Neurological Surgery
DX: E03.9 Hypothyroidism, unspecified (principal); M48.061 Spinal stenosis, lumbar region without neurogenic claudication; E11.40 Type 2 diabetes mellitus with diabetic neuropathy, unspecified; Z79.84 Long term (current) use of oral hypoglycemic drugs; I10 Essential (primary) hypertension; Z72.0 Tobacco use; E78.5 Hyperlipidemia, unspecified; M54.16 Radiculopathy, lumbar region

== ENCOUNTER → 2020-04-04 08:21 | Outpatient (CLI) | payer BC ==
[2020-03-21 08:13] VITALS: BMI 32.7
[~2020-04-04 08:21] MED LIST changes: +HYDROCODON-ACE1 EA10 PO
== END | disposition home or self-care (01) ==
LOC: D.MRI 08:21
PROVIDERS: ATTEND Orthopaedic Surgery
DX: M25.561 Pain in right knee (principal)

== ENCOUNTER 2020-04-17 15:03 | Inpatient (IN) | payer BC ==
[~2020-04-17] VITALS: Ht 182.9 cm; Wt 99.8 kg
[~2020-04-17 15:03] MED LIST changes: -AXIRON30 MG/1.5 IM; -TOUJEO SOL300 UNIT/1; +TOUJEO SOL300 UNIT/1 SQ; +[UNRECOGNIZED DRUG - OTHER] IM
[2020-06-11] MEDS ORDERED: PROSCAR5 MG PO (16:35)
[2020-06-11] MEDS ORDERED: JARDIANCE25 MG PO (16:36)
[2020-06-11] MEDS ORDERED: FLOMAX0.4 MG PO (16:37)
[2020-06-11] MEDS ORDERED: LUNESTA2 M1 PO (16:37)
[2020-06-11] MEDS ORDERED: VASCEPA1 GM PO (16:38)
[2020-06-11] MEDS ORDERED: LINZESS72 MCG PO (16:52)
[2020-06-12 11:31] LABS: APTT 25.7 SECONDS (22.8-39.4); INR 0.93 (0.85-1.17); PROTIME 12.5 SECONDS (11.6-15.0)
[2020-06-12 11:35] LABS: BASOPHILS 0.5 % (0-2); EOSINOPHILS 1.5 % (0-7); HEMATOCRIT 48.5 % (42.0-54.0); HEMOGLOBIN 16.1 g/dL (13.5-17.5); IMMATURE GRANULOCYTES 1.1 % (0-5); LYMPHOCYTES 17.9 % (15-50); MCH 32.7 pg (26.0-34.0); MCHC 33.2 g/dL (31.0-37.0); MCV 98.6 fL (80.0-100.0); MEAN PLATELET VOLUME 9.8 fL (7.4-10.4); MONOCYTES 7.2 % (2-11); NEUTROPHILS 71.8 % (40-80); PLATELET COUNT 205 10x3/uL (130-400); RBC 4.92 10x6/uL (4.20-6.10); RDW 14.7 % (11.5-14.5); WBC 10.4 10x3/uL (4.8-10.8)
[2020-06-12 11:36] LABS: CALCIUM 9.9 mg/dL (8.5-10.1); CARBON DIOXIDE 25.6 mmol/L (21.0-32.0); CREATININE - SERUM 1.9 mg/dL (0.6-1.3); POTASSIUM - SERUM 4.6 mmol/L (3.5-5.1)
[2020-06-12 13:06] LABS: BILIRUBIN NEGATIVE (NEGATIVE); KETONE NEGATIVE (NEGATIVE); NITRITE NEGATIVE (NEGATIVE)
[2020-06-12 13:08] LABS: BACTERIA NONE SEEN /hpf (NEGATIVE); EPITHELIAL CELLS RARE /hpf (0-5); RED CELLS - URINE NONE SEEN /hpf (0-5); WHITE CELLS - URINE RARE /hpf (NEGATIVE)
[2020-06-18] VITALS (13 sets, daily range): BP systolic 69–125; BP diastolic 35–74; BMI 29.9
--- NOTE | 2020-06-18 07:51 | NUR ---
THROUGH TRAFFIC KEPT TO A MINIMUM. HIBACLENS AND ALCOHOL USED TO CLEAN BEFORE CHLORAPREP. STERILE GOWNED AND GLOVED TO PREP WITH CHLORAPREP. PATIENT HAS LARGE METAL EARRINGS IN EARS THAT CANNOT BE REMOVED UNDERSTANDS RISK OF BEING BURNED DUR TO CAUTERY DEVICE.
--- NOTE | 2020-06-18 10:20 | NUR ---
RECEIVED TO ROOM 1208 VIA BED FROM PACU. A/O X3. C/O PAIN TO RIGHT KNEE LEVEL 8. WILL MONITOR. DRESSING TO SAME IS DRY AND INTACT. AT BEDSIDE. DENIES NEEDS.
--- NOTE | 2020-06-18 12:31 | MORECARE ---
CASE MANAGEMENT DISCHARGE SUMMARY PATIENT: AIDEN MANCILLA UNIT: [id number] ADM DATE: 06/18/20 AGE: 64 : 59 SEX: M ROOM/BED: D.1208 AUTHOR: MANDI BOND PHYSICIAN: REFERRING PHYSICIAN: IDALMIS CASAS DO DATE OF SERVICE: 06/18/20 Discharge Plan Patient Name: AIDEN MANCILLA [facility] [facility] 1955 Planned Disposition: Anticipated Discharge Date: Discharge Date: Expected LOS: Initial Reviewer: [email or web address] Initial Review Date: 06/18/2020 Generated: 06/18/20 1:30 pm Patient Name: AIDEN MANCILLA Page [phone] at 1231 All edits/amendments must be made on the electronic document DICTATION DATE: 06/18/20 1231 RETAIL FIELD MERCHANDISER: HUSSEIN 06/18/20 1231 RPT#: [id number] DC DATE: STATUS: ADM IN [facility] [address] [place] [address] END OF REPORT
--- NOTE | 2020-06-18 15:04 | NUR ---
UP TO BSC WITH ONE PERSON MIN ASSIST. VOIDED 200cc CLEAR YELLOW URINE. REPOSITIONED IN BED FOR COMFORT. DENIES NEEDS.
--- NOTE | 2020-06-18 15:54 | NUR ---
UP TO BR WITH RW AND MIN ASSIST. VOIDED WITH SOME DIFFICULTY BUT HAS HISTORY OF PROSTATE PROBLEMS PER . WILL MONITOR.
--- NOTE | 2020-06-18 17:06 | MORECARE ---
CASE MANAGEMENT DISCHARGE SUMMARY PATIENT: AIDEN LOPEZ UNIT: [id number] ADM DATE: 06/18/20 AGE: 64 : 59 SEX: M ROOM/BED: D.1208 AUTHOR: RONDA,MANDI PHYSICIAN: REFERRING PHYSICIAN: IDALMIS CASAS DO DATE OF SERVICE: 06/18/20 Discharge Plan Patient Name: AIDEN LOPEZ Facility: [facility]:[place] : 1955 Planned Disposition: Outpatient PT\OT Anticipated Discharge Date: 06/20/20 Discharge Date: Expected LOS: 2 Initial Reviewer: [email or web address] Initial Review Date: 06/18/2020 Generated: 06/18/20 6:06 pm Comments DCP- Discharge Planning Updated by [email or web address]: Zully Tello on 06/18/20 4:[address] CM met with patient and spouse, Mayte Lopez () [phone], regarding DC needs/plans. Patient is drowsy, so Mayte answers questions. Patient lives independently with his . PCP: Dr. Barker. Pharmacy: [facility]. DME: CPM, RW (2 wheels), 4 wheeled walker with seat, BSC, cooling unit. Encouraged Mayte for patient to use 2 wheeled walker for safety purposes. Patient plans to have OP Therapy at [facility]. CM will be in touch with [facility], in order to arrange days. mayte will drive patient home upon DC and to appointments. CM will revisit 06/19 for JORGE A for OP Therapy. DCPIA - Discharge Planning Initial Assessment Updated by [email or web address]: Zully Tello on 06/18/20 5:06 pm * Is the patient Alert and Oriented? Yes * PCP Dr. Barker * Pharmacy [facility] * Preadmission Environment Home with Family * ADLs Independent * Equipment Bedside Commode * Other Equipment CPM, RW 2 wheels, RW 4 wheels/seat, BSC, Cooling unit. * List name and contact numbers for known caregivers / representatives who currently or will assist patient after discharge: Mayte Lopez () [phone] * Verbal permission to speak to the caregivers and representatives has been obtained from the patient. Yes * Community resources currently utilized None * Please name any agencies selected above. [facility] * Additional services required to return to the preadmission environment? Yes * Can the patient safely return to the preadmission environment? Yes * Has this patient been hospitalized within the prior 30 days at any hospital? No Last DP export: 06/18/20 11:31 a Patient Name: AIDEN LOPEZ Page 19681 at 1706 All edits/amendments must be made on the electronic document DICTATION DATE: 06/18/201705 HYDRAULIC ROCKBREAKER OPERATOR: HUSSEIN 06/18/201705 RPT#: [id number] DC DATE: STATUS: ADM IN [facility] [address] [place] [address] END OF REPORT
--- NOTE | 2020-06-18 20:00 | NUR ---
RESTING IN BED CPM IN USE, DENIES PAIN SALES ARCHITECT IN USE FOR PAIN CONTROL, SEE SHIFT ASSESSMENT, CALL LIGHT IN REACH, DENIES NEEDS AT THIS TIME
[2020-06-19] VITALS (8 sets, daily range): BP systolic 84–123; BP diastolic 48–66; Ht 182.9 cm; Wt 99.8 kg
[2020-06-19 06:13] LABS: BASOPHILS 0.3 % (0-2); EOSINOPHILS 0.4 % (0-7); HEMATOCRIT 40.1 % (42.0-54.0); IMMATURE GRANULOCYTES 0.4 % (0-5); LYMPHOCYTES 9.5 % (15-50); MCH 32.6 pg (26.0-34.0); MCHC 32.4 g/dL (31.0-37.0); MCV 100.5 fL (80.0-100.0); MEAN PLATELET VOLUME 10.5 fL (7.4-10.4); NEUTROPHILS 75.4 % (40-80); PLATELET COUNT 169 10x3/uL (130-400); RBC 3.99 10x6/uL (4.20-6.10); RDW 15.3 % (11.5-14.5); WBC 13.4 10x3/uL (4.8-10.8)
[2020-06-19 07:11] LABS: ANION GAP 15.7 mmol/L (8-16); CALCIUM 8.2 mg/dL (8.5-10.1); CARBON DIOXIDE 17.8 mmol/L (21.0-32.0); CREATININE - SERUM 2.9 mg/dL (0.6-1.3); MAGNESIUM - SERUM 1.7 mg/dL (1.8-2.4); PHOSPHOROUS 4.4 mg/dL (2.5-4.9); POTASSIUM - SERUM 4.5 mmol/L (3.5-5.1)
--- NOTE | 2020-06-19 08:00 | OP ---
PATIENT NAME: AIDEN LOPEZ MEDICAL RECORD: [id number] :59 LOCATION:D. D.1208 ADMISSION DATE:06/18/20 SURGEON: JAMES CASAS DO DATE OF OPERATION: 06/18/2020 PROCEDURE PERFORMED: Right total knee arthroplasty. PREOPERATIVE DIAGNOSIS: Right knee osteoarthritis. POSTOPERATIVE DIAGNOSIS: Right knee osteoarthritis. INDICATIONS: Mr. Lopez is a 64-year-old male who has had right knee pain for quite some time. We tried an injection to no avail. Had an MRI, which showed 2 large full thickness cartilage loss over the lateral condyle of the femur. I had a long discussion with him about what to do and he decided he wanted knee replacement. I informed him of the risks including infection, bleeding, damage to nerves or vessels, need for further surgery, fracture, failure of implants, loosening, continued pain, arthrofibrosis of the knee, blood clots, and even and he signed the consent. SURGEON: James Casas DO DESCRIPTION OF PROCEDURE: The patient received block by anesthesia in the preoperative area, given 2 grams of Ancef preoperatively, taken to the operative suite and sedated and LMA was placed. The right lower extremity was then prepped and draped in sterile fashion. A timeout was performed; everyone was in agreement with the correct side, site, patient and procedure. We then began by marking out the incision on the anterior knee and covered in Ioban. I then used a 10-blade scalpel to make careful dissection down to the capsule through the skin with a fresh 10 blade and did a medial parapatellar approach. We then everted the patella and milled it. I removed part of the fat pad and then flexed the knee up, removed the ACL and went to the femoral canal into the distal femur cutting guide and pinned it into place and cut the distal femur. I then did expose the proximal tibia and cut the proximal tibia through the guide. I then brought the knee into extension and removed the menisci and coagulated any vessels bleeding. The extension block doing quite fit, so I recut the tibia 2 more mm and extension block pinned fit. I then flexed the knee, upsized the femur to be a 77.0. I then used a 4-in-1 cutting block to the cut the femur through the cutting block. I then put on the trial, floated in the tibia with the poly and marked the rotation. I then drilled for the patella through a guide and also the lug holes on the femur. I then exposed the tibia and sized it to be 75, reamed and punched and then put extra holes in the tibia. This was then irrigated while the cement mixed and once the cement was mixed I put cement in the tibia and on the implant, impacted in place, removed the excess cement. I then impacted the femur on and put a 10 poly between brought into extension and cleaned the patella, put the cement on the patella and the hole was then on the implant, squeezing it in place removing excess cement. I then put the 10% povidone-iodine with 500 mL normal saline solution in the knee and let it sit for 3 minutes and irrigated out. Once cement had dried, I trialed 10 and 12 poly, 12 fit better and went the 12 anterior stabilized poly. This was then inserted in the knee and locked into place with the locking bar. Irrigated the knee one more time and then put Manisha and vancomycin and tobramycin powder in the knee and then closed the capsule with #1 Vicryl in a gydssd-uz-mvnfv fashion by myself and Perez Jon, certified manager surgical and then Perez Jon closed the skin with 2-0 Vicryl in inverted interrupted fashion and a ZipLine on the OPERATIVE REPORT [id number] AIDEN LOPEZ knee and placed Adaptic, 4 x 4s, ABD, Webril, Pepito wrap on the knee. He was then awakened and taken to recovery in stable condition. BLOOD LOSS: 250 mL. COMPLICATIONS: None. TRANSINT:[id number] Voice Confirmation ID: [id number] DOCUMENT ID: [id number] JAMES CASAS DO at 0800 CC: [id number] DICTATION DATE: 06/18/20947 WALLCOVERING TEXTURER: 06/18/20 193 ADM IN [facility] [address] [place] [address]
--- NOTE | 2020-06-19 10:40 | NUR ---
ASSESSMENT PER FLOW SHEET. PATIENT IS WITHOUT DISTRESS. HE HAS SOME ANXIETY THIS AM RE.. CPM. HEALTH INSURANCE AGENT DCD ORDERED EARLY AM. PO MEDS STARTED ORDERED.FALL PREVENTION IN PLACE. CPM REMOVED AT 0830. INCENTIVE SPIROMETRY INSTRUCTED. PATIENT SATES HE HAS BEEN DOING FREQUENTLY.DRESSING TO RLE CDI.CALL LIGHT IN REACH.
[2020-06-19 12:16] LABS: BILIRUBIN NEGATIVE (NEGATIVE); KETONE NEGATIVE (NEGATIVE); NITRITE NEGATIVE (NEGATIVE); UROBILINOGEN NORMAL (NORMAL)
[2020-06-19 12:25] LABS: RED CELLS - URINE NONE SEEN /hpf (0-5)
[2020-06-19 12:26] LABS: BACTERIA FEW /hpf (NEGATIVE); EPITHELIAL CELLS NSEEN /hpf (0-5); GRANULAR CAST 0-5 /lpf (NONE SEEN)
--- NOTE | 2020-06-19 15:30 | NUR ---
CALL TO PT AND JUDD LEFT FOR THEM TO CALL UNIT FOR EXERCISES FOR HAMSTRING PAIN PER DR. RAMOS'S REQUEST.
--- NOTE | 2020-06-19 16:35 | NUR ---
STILL UP IN CHAIR. GOWN CHANGED.MEDS ORDERED PER DEC.LEFT MESSAGE FOR PT TO CALL UNIT AGAIN.WAITING ON RETURN CALL.IS INSTRUCTED WITH 3500ML INSPIRATION. INSTRUCTED PATIENT 10 TIMES PER HOUR WHILE AWAKE.STATES ROBAXIN IS HELPING PAIN IN HAMSTRING SOME. MONITOR FOR NEEDS
--- NOTE | 2020-06-19 16:40 | NUR ---
PAGE OVERHEAD FOR PT. NO CALL BACK YET.
--- NOTE | 2020-06-19 20:00 | NUR ---
ALERT RESTING IN BED, CPM IN USE DENIES PAIN OR NEEDS AT THIS TIME, CALL LIGHT IN REACH
--- NOTE | 2020-06-19 22:00 | NUR ---
AWAKE SITTING UP ON SIDE OF BED, DENIES PAIN OR NEEDS, HAS CALL LIGHT IN REACH BED ALARM ON FALL PRECAUTIONS IN PLACE
[2020-06-20 04:00] VITALS: BP 132/64
[2020-06-20 06:42] LABS: BASOPHILS 0.2 % (0-2); EOSINOPHILS 0.4 % (0-7); IMMATURE GRANULOCYTES 0.3 % (0-5); LYMPHOCYTES 11.7 % (15-50); MCH 32.2 pg (26.0-34.0); MCHC 32.4 g/dL (31.0-37.0); MCV 99.2 fL (80.0-100.0); MEAN PLATELET VOLUME 10.3 fL (7.4-10.4); MONOCYTES 14.4 % (2-11); PLATELET COUNT 146 10x3/uL (130-400); RBC 3.73 10x6/uL (4.20-6.10); RDW 15.2 % (11.5-14.5); WBC 12.6 10x3/uL (4.8-10.8)
[2020-06-20 06:53] LABS: ANION GAP 13.6 mmol/L (8-16); CALCIUM 7.4 mg/dL (8.5-10.1); CARBON DIOXIDE 20.1 mmol/L (21.0-32.0); CREATININE - SERUM 2.3 mg/dL (0.6-1.3); PHOSPHOROUS 3.5 mg/dL (2.5-4.9); POTASSIUM - SERUM 4.7 mmol/L (3.5-5.1)
[2020-06-20 07:15] VITALS: BP 123/61
--- NOTE | 2020-06-20 07:15 | NUR ---
PT IS RESTING IN BED WITH EYES OPEN. RESPIRATIONS ARE EVEN AND UNLABORED. PT IS AAO X 4. PT REPORTS PRESENCE OF NUMBNESS/TINGLING TO BLE AND STATS "TOD HAD A STROKE AND SINCE THEN I DONT PERCEIVE PAIN THE SAME AND MY LEGS ALWAYS FEEL LIKE THAT". DRESSING TO RIGHT KNEE NOTED AND IS CDI. BLE PEDAL PULSES ARE PALP AND BLE CAP REFILL IS < 3 SEC. PT DENIES PRESENCE OF PAIN/N/V AT THIS TIME. PT DENIES HAVING BM SINCE PROCEDURE AND STATES "THATS NORMAL. I HAVE IBSC AND TAKE MEDICATION TO HELP WITH IT". PIV TO RIGHT FA INFUSING PER ORDER WITHOUT DIFFICULTY. BED IS IN THE LOWEST POSITION. CALL LIGHT AND BEDSIDE TABLE ARE WITHIN REACH. SIDE RAILS X 2. PT DENIES FURTHER NEEDS. WILL CONT TO MONITOR.
[2020-06-20] MEDS ORDERED: ELIQUIS2.5 MG PO (08:31)
[2020-06-20] MEDS ORDERED: VISTARIL50 MG PO (08:32)
[2020-06-20] MEDS ORDERED: DILAUDID4 MG PO (08:33)
[2020-06-20] MEDS ORDERED: KEFLEX500 MG PO (08:33)
--- NOTE | 2020-06-20 10:10 | NUR ---
DRESSING CHANGED PER ORDER. PT TOLERATED WELL. PT SITTING IN BEDSIDE CHAIR. SPOUSE AT BEDSIDE. NO FURTHER QUESTIONS PERTAINING TO DRESSING CHANGES. PT DENIES FURTHER NEEDS. CALL LIGHT AND BEDSIDE TABLE ARE WITHIN REACH. INCENTIVE SPIROMETER ENCOURAGED. WILL CONT TO MONITOR.
--- NOTE | 2020-06-20 11:40 | NUR ---
ALL DISCHARGE INSTRUCTIONS COVERED WITH PT. PT DENIES FURTHER QUESTIONS/CONCERNS AT THIS TIME. EXTRA DRESSINGS GIVEN TO PT PER REQUEST FROM DR CASAS. PIV TO RIGHT FA REMOVED WITH CATHETER TIP INTACT. DRESSING APPLIED. ALL DISCHARGE PAPERS SIGNED. (1) PRINTED RX GIVEN TO PT. PT DENIES FURTHER QUESTIONS/CONCERNS/NEEDS. PT ASSISTED TO WHEELCHAIR AND ESCORTED FROM ROOM TO TRANSPORTATION HOME. PT THANKS THIS NURSE FOR CARE GIVEN DURING THIS SHIFT AND STATES THAT ALL PERSONAL BELONGINGS ARE WITH PT. ALL SIGNED DC PAPERS PLACED IN PT CHART.
--- NOTE | 2020-06-21 10:41 | MORECARE ---
CASE MANAGEMENT DISCHARGE SUMMARY PATIENT: AIDEN LOPEZ UNIT: [id number] ADM DATE: 06/18/20 AGE: 64 : 59 SEX: M ROOM/BED: D.1208 AUTHOR: MANDI BOND PHYSICIAN: REFERRING PHYSICIAN: IDALMIS CASAS DO DATE OF SERVICE: 06/21/20 Discharge Plan Patient Name: AIDEN LPOEZ Facility: [facility]:[place] : 1955 Planned Disposition: Outpatient PT\OT Anticipated Discharge Date: 06/20/20 Discharge Date: 06/20/2020 Expected LOS: 2 Initial Reviewer: [email or web address] Initial Review Date: 06/18/2020 Generated: 06/21/20 11:41 am Comments DCP- Discharge Planning Updated by [email or web address]: Zully Tello on 06/18/20 4:[address] CM met with patient and spouse, Mayte Lopez () [phone], regarding DC needs/plans. Patient is drowsy, so Mayte answers questions. Patient lives independently with his . PCP: Dr. Barker. Pharmacy: [facility]. DME: CPM, RW (2 wheels), 4 wheeled walker with seat, BSC, cooling unit. Encouraged Mayte for patient to use 2 wheeled walker for safety purposes. Patient plans to have OP Therapy at [facility]. CM will be in touch with [facility], in order to arrange days. mayte will drive patient home upon DC and to appointments. CM will revisit 06/19 for JORGE A for OP Therapy. DCPIA - Discharge Planning Initial Assessment Updated by [email or web address]: Zully Tello on 06/18/20 5:06 pm * Is the patient Alert and Oriented? Yes * PCP Dr. Barker * Pharmacy [facility] * Preadmission Environment Home with Family * ADLs Independent * Equipment Bedside Commode * Other Equipment CPM, RW 2 wheels, RW 4 wheels/seat, BSC, Cooling unit. * List name and contact numbers for known caregivers / representatives who currently or will assist patient after discharge: Mayte Lopez () [phone] * Verbal permission to speak to the caregivers and representatives has been obtained from the patient. Yes * Community resources currently utilized None * Please name any agencies selected above. [facility] * Additional services required to return to the preadmission environment? Yes * Can the patient safely return to the preadmission environment? Yes * Has this patient been hospitalized within the prior 30 days at any hospital? No Last DP export: 06/18/20 4:06 p Patient Name: AIDEN LOPEZ Page [phone] at 1041 All edits/amendments must be made on the electronic document DICTATION DATE: 06/21/20 1041 COLOR STRAINING BAG WASHER: HUSSEIN 06/21/20 1041 RPT#: [id number] DC DATE:06/20/20 STATUS: DIS IN [facility] [address] [place] [address] END OF REPORT
--- NOTE | 2020-06-21 13:32 | MORECARE ---
CASE MANAGEMENT DISCHARGE SUMMARY PATIENT: AIDEN LOPEZ UNIT: [id number] ADM DATE: 06/18/20 AGE: 64 : 59 SEX: M ROOM/BED: D.1208 AUTHOR: MANDI BOND PHYSICIAN: REFERRING PHYSICIAN: IDALMIS CASAS DO DATE OF SERVICE: 06/21/20 Discharge Plan Patient Name: AIDEN LOPEZ Facility: [facility]:[place] : 1955 Planned Disposition: Outpatient PT\OT Anticipated Discharge Date: 06/20/20 Discharge Date: 06/20/2020 Expected LOS: 2 Initial Reviewer: [email or web address] Initial Review Date: 06/18/2020 Generated: 06/21/20 2:31 pm Comments DCP- Discharge Planning Updated by [email or web address]: Zully Tello on 06/18/20 4:[address] CM met with patient and spouse, Mayte Lopez () [phone], regarding DC needs/plans. Patient is drowsy, so Mayte answers questions. Patient lives independently with his . PCP: Dr. Barker. Pharmacy: [facility]. DME: CPM, RW (2 wheels), 4 wheeled walker with seat, BSC, cooling unit. Encouraged Mayte for patient to use 2 wheeled walker for safety purposes. Patient plans to have OP Therapy at [facility]. CM will be in touch with [facility], in order to arrange days. mayte will drive patient home upon DC and to appointments. CM will revisit 06/19 for JORGE A for OP Therapy. DCPIA - Discharge Planning Initial Assessment Updated by [email or web address]: Zully Tello on 06/18/20 5:06 pm * Is the patient Alert and Oriented? Yes * PCP Dr. Barker * Pharmacy [facility] * Preadmission Environment Home with Family * ADLs Independent * Equipment Bedside Commode * Other Equipment CPM, RW 2 wheels, RW 4 wheels/seat, BSC, Cooling unit. * List name and contact numbers for known caregivers / representatives who currently or will assist patient after discharge: Mayte Lopez () [phone] * Verbal permission to speak to the caregivers and representatives has been obtained from the patient. Yes * Community resources currently utilized None * Please name any agencies selected above. [facility] * Additional services required to return to the preadmission environment? Yes * Can the patient safely return to the preadmission environment? Yes * Has this patient been hospitalized within the prior 30 days at any hospital? No External Providers External Provider: OUTPTNP-NP Outpt PT Next Contact Date: Service Request Date: Service Type: Resolution: Reviewer: Comments: Last DP export: 06/21/20 9:41 a Patient Name: AIDEN LOPEZ Page 40648 at 1332 All edits/amendments must be made on the electronic document DICTATION DATE: 06/21/20 1331 PRINTING MACHINE MECHANIC: HUSSEIN 06/21/20 1331 RPT#: [id number] DC DATE:06/20/20 STATUS: DIS IN [facility] [address] [place] [address] END OF REPORT
== END 2020-06-20 12:37 | disposition home or self-care (01) | DRG 470 ==
LOC: D.PAN 05-03 09:25 → D.OPS 05-03 10:45 → EDSTATUS 05-03 10:45 → D.PAN 05-03 10:45 → D.SDCHOLD 05-21 17:55 → D.M3 06-18 05:15 → D.SDCHOLD 06-18 07:00 → D.M3 06-18 09:30 → D.SDCHOLD 06-18 18:30 → D.M3 06-20 12:37
PROVIDERS: Family Medicine; ADMIT Orthopaedic Surgery; ATTEND Orthopaedic Surgery
PROC: 0SRC0J9 Replacement of Right Knee Joint with Synthetic Substitute, Cemented, Open Approach (ICD-10-PCS; principal; 2020-06-18 07:00)
DX: M17.11 Unilateral primary osteoarthritis, right knee (principal); N17.9 Acute kidney failure, unspecified; Z86.73 Personal history of transient ischemic attack (TIA), and cerebral infarction without residual deficits; E11.40 Type 2 diabetes mellitus with diabetic neuropathy, unspecified; K21.9 Gastro-esophageal reflux disease without esophagitis; E11.22 Type 2 diabetes mellitus with diabetic chronic kidney disease; I12.9 Hypertensive chronic kidney disease with stage 1 through stage 4 chronic kidney disease, or unspecified chronic kidney disease; N18.9 Chronic kidney disease, unspecified; Z85.79 Personal history of other malignant neoplasms of lymphoid, hematopoietic and related tissues; Z72.0 Tobacco use

== ENCOUNTER → 2020-05-10 18:45 | Outpatient (CLI) | payer BC ==
[2020-03-21 08:13] VITALS: BMI 32.7
[~2020-05-10 18:45] MED LIST changes: +AXIRON30 MG/1.5 IM; +TOUJEO SOL300 UNIT/1; -TOUJEO SOL300 UNIT/1 SQ; -[UNRECOGNIZED DRUG - OTHER] IM
== END | disposition home or self-care (01) ==
LOC: D.LABREF 18:45
PROVIDERS: ATTEND Orthopaedic Surgery
DX: M17.11 Unilateral primary osteoarthritis, right knee (principal)

== ENCOUNTER → 2020-07-08 12:51 | Outpatient (CLI) | payer BC ==
[2020-06-19 10:07] VITALS: BMI 29.8
[~2020-07-08 12:51] MED LIST changes: -AXIRON30 MG/1.5 IM; +DILAUDID4 MG PO; +ELIQUIS2.5 MG PO; +FLOMAX0.4 MG PO; +JARDIANCE25 MG PO; +KEFLEX500 MG PO; +LINZESS72 MCG PO; +LUNESTA2 M1 PO; +PROSCAR5 MG PO; -TOUJEO SOL300 UNIT/1; +TOUJEO SOL300 UNIT/1 SQ; +VASCEPA1 GM PO; +[UNRECOGNIZED DRUG - OTHER] IM
[2020-07-08 13:36] LABS: BASOPHILS 0.7 % (0-2); EOSINOPHILS 2.1 % (0-7); HEMATOCRIT 44.4 % (42.0-54.0); HEMOGLOBIN 14.7 g/dL (13.5-17.5); IMMATURE GRANULOCYTES 0.6 % (0-5); LYMPHOCYTES 20.7 % (15-50); MCH 32.4 pg (26.0-34.0); MCHC 33.1 g/dL (31.0-37.0); MCV 97.8 fL (80.0-100.0); MEAN PLATELET VOLUME 9.5 fL (7.4-10.4); MONOCYTES 6.6 % (2-11); NEUTROPHILS 69.3 % (40-80); RBC 4.54 10x6/uL (4.20-6.10); RDW 14.2 % (11.5-14.5); WBC 12.3 10x3/uL (4.8-10.8)
[2020-07-08 13:51] LABS: PLATELET COUNT 361 10x3/uL (130-400)
[2020-07-08 14:00] LABS: CREATININE - URINE 280.8 mg/dL (30-125); PRO/CRE RATIO URINE 0.4 mg/g; PROTEIN - URINE 101.2 mg/dL (0.0-11.9)
[2020-07-08 14:01] LABS: BACTERIA MODERATE /HPF (NONE SEEN); BILIRUBIN NEGATIVE (NEGATIVE); EPITHELIAL CELLS 0-5 /hpf (0-5); KETONE NEGATIVE (NEGATIVE); NITRITE NEGATIVE (NEGATIVE); UROBILINOGEN NORMAL mg/dL (< 2); WHITE CELLS - URINE OCC HPF (0-1)
[2020-07-08 14:02] LABS: EPITHELIAL CELL CAST RARE /lpf (NONE SEEN); GRANULAR CAST RARE /lpf (NONE SEEN)
[2020-07-08 14:23] LABS: ANION GAP 11.9 mmol/L (8-16); CALCIUM 10.8 mg/dL (8.5-10.1); CARBON DIOXIDE 25.5 mmol/L (21.0-32.0); CREATININE - SERUM 2.3 mg/dL (0.6-1.3); POTASSIUM - SERUM 5.4 mmol/L (3.5-5.1)
== END | disposition home or self-care (01) ==
LOC: D.LAB 12:51
PROVIDERS: ATTEND Nurse Practitioner Family
DX: N18.4 Chronic kidney disease, stage 4 (severe) (principal); I10 Essential (primary) hypertension

== ENCOUNTER → 2021-03-21 08:23 | Outpatient (CLI) | payer BC ==
[2020-09-06 08:25] VITALS: BMI 30.6
[~2021-03-21 08:23] MED LIST changes: +EPITOL200 MG PO
[2021-03-21 09:00] LABS: BASOPHILS 0.9 % (0-2); EOSINOPHILS 3.4 % (0-7); HEMATOCRIT 42.8 % (42.0-54.0); HEMOGLOBIN 14.4 g/dL (13.5-17.5); LYMPHOCYTES 22.8 % (15-50); MCH 32.1 pg (26.0-34.0); MCHC 33.7 g/dL (31.0-37.0); MCV 95.2 fL (80.0-100.0); MEAN PLATELET VOLUME 8.6 fL (7.4-10.4); MONOCYTES 11.7 % (2-11); NEUTROPHILS 61.2 % (40-80); PLATELET COUNT 215 10x3/uL (130-400); RBC 4.49 10x6/uL (4.20-6.10); RDW 13.6 % (11.5-14.5); WBC 7.7 10x3/uL (4.8-10.8)
[2021-03-21 09:04] LABS: CREATININE - URINE 63.1 mg/dL (30-125); PRO/CRE RATIO URINE 0.8 mg/g; PROTEIN - URINE 53.4 mg/dL (0.0-11.9)
[2021-03-21 09:17] LABS: % SATURATION 37 % (15-55); IRON 96 ug/dl (35-150); TOTAL IRON BIND CAPACITY 253 ug/dl (260-445); UNSAT IRON BIND CAPACITY 157 ug/dl (150-375)
[2021-03-21 09:18] LABS: BACTERIA RARE HPF (NONE SEEN); BILIRUBIN NEGATIVE (NEGATIVE); KETONE NEGATIVE (NEGATIVE); NITRITE NEGATIVE (NEGATIVE); SQUAMOUS EPITHELIAL 0-5 HPF (0-4); UROBILINOGEN NORMAL mg/dL (< 2); WHITE CELLS - URINE NONE SEEN HPF (0-1)
[2021-03-21 09:30] LABS: CALCIUM 9.5 mg/dL (8.5-10.1); CARBON DIOXIDE 25.2 mmol/L (21.0-32.0); CREATININE - SERUM 2.7 mg/dL (0.6-1.3); POTASSIUM - SERUM 5.2 mmol/L (3.5-5.1)
== END | disposition home or self-care (01) ==
LOC: D.LAB 08:23
PROVIDERS: ATTEND Internal Medicine Nephrology
DX: N18.4 Chronic kidney disease, stage 4 (severe) (principal); I10 Essential (primary) hypertension; Z72.0 Tobacco use